=== PATIENT | male | born 2000 | race Caucasian/White ===

== ENCOUNTER 2018-10-08 23:04 | Emergency (ER) | payer OTHER ==
[2018-10-08 23:55] LABS: URINE BLOOD (Dip) POC Trace-intact (NEGATIVE); URINE GLUCOSE (Dip) POC Negative (NEGATIVE); URINE KETONES (Dip) POC Negative (NEGATIVE); URINE LEUKOCYTE EST (Dip) POC Negative (NEGATIVE); URINE NITRITE (Dip) POC Negative (NEGATIVE); URINE TOTAL PROTEIN POC Negative (NEGATIVE)
[2018-10-08 23:55] LABS: URINE PH (Dip) POC 6.5 (5.0-8.5)
== END 2018-10-09 00:56 | disposition home or self-care (01) ==
LOC: FTE 23:04
DX: M54.5 Low back pain (principal)
CPT/HCPCS: 81003; 87086; 99283